=== PATIENT | female | born 1965 | race Caucasian/White ===

== ENCOUNTER → 2016-09-02 | Outpatient (CLI) | payer OTHER | LOC: MAMO 08-30 08:00 | DX: N64.59 Other signs and symptoms in breast (principal) | CPT/HCPCS: G0204 ==

== ENCOUNTER 2020-03-18 12:51 | Emergency (ER) | payer OTHER | END 2020-03-18 15:00 | disposition home or self-care (01) | LOC: ER1 12:51 | DX: S61.217A Laceration without foreign body of left little finger without damage to nail, initial encounter (principal); Z23 Encounter for immunization; W25.XXXA Contact with sharp glass, initial encounter; Y92.009 Unspecified place in unspecified non-institutional (private) residence as the place of occurrence of the external cause | CPT/HCPCS: 12001; 90471; 90715; 99282 ==